=== PATIENT | female | born 1945 | race Asian ===

== ENCOUNTER 2018-04-07 14:27 | Emergency (ER) | payer OTHER ==
[2018-04-07 14:48] VITALS: BP 119/73; PULSE 88; TEMP 98.2; BMI 23.0
--- NOTE | 2018-04-07 15:42 | PDOC ---
History of Present Illness - General Chief Complaint: Lightheaded Stated Complaint: Lightheaded Time Seen by Provider: 04/07/18 15:29 - History of Present Illness Initial Comments: 04/07/18 15:36 72 F with h/o CAD/stent, DM, HTN, AICD, presenting to ED with lightheadedness. Pt states that she was having a mammogram done when she felt very dizzy. Denies room-spinning sensation. States that she felt lightheaded like she was about to faint, but she denies LOC. Pt states that the episode lasted less than 1 minute before resolving completely. Pt denies ever having CP/SOB/palpitations. Denies any recent F/C. Denies abdominal pain/N/V/D. Denies any symptoms at this time. She states that she has had many similar episodes in the past. Pt was brought to ED as a rapid response. Past History - Past Medical History Allergies/Adverse Reactions: Allergies Allergy/AdvReac Type Severity Reaction Status Date / Time No Known Allergies Allergy Verified 04/07/18 14:43 Home Medications: Ambulatory Orders Aspirin [ASA -] 81 mg PO DAILY 05/27/14 Carvedilol [Coreg] 3.125 mg PO BID 05/27/14 Clopidogrel Bisulfate [Plavix -] 75 mg PO DAILY 05/27/14 Isosorbide Mononitrate [Imdur -] 30 mg PO BID 05/27/14 Ranolazine [Ranexa] 1,000 mg PO BID 05/27/14 Cilostazol 50 mg PO BID 01/23/15 Pantoprazole Sodium [Protonix] 40 mg PO DAILY 01/23/15 Rosuvastatin Calcium [Crestor] 10 mg PO DAILY 01/23/15 Cardiac Disorders: Yes (LBBB Stent LAD RCA) COPD: No GI Disorders: Yes (GERD) HTN: Yes Liver Disease: Yes (ELEVATED ENZYMES) - Surgical History Cardiac Surgery: Yes (STENT X3) - Suicide/Smoking/Psychosocial Hx Smoking Status: No Smoking History: Former smoker Have you smoked in the past 12 months: No Number of Cigarettes Smoked Daily: 0 Information on smoking cessation initiated: No Hx Alcohol Use: No Drug/Substance Use Hx: No Review of Systems - Review of Systems Comments:: 04/07/18 15:38 "GENERAL/CONSTITUTIONAL: No fever or chills. No weakness. HEAD, EYES, EARS, NOSE AND THROAT: No change in vision. No ear pain or discharge. No sore throat. CARDIOVASCULAR: + lightheadedness, No chest pain, no shortness of breath, no loss of consciousness RESPIRATORY: No cough, wheezing, or hemoptysis. GASTROINTESTINAL: No nausea, vomiting, diarrhea or constipation. GENITOURINARY: No dysuria, frequency, or change in urination. MUSCULOSKELETAL: No joint or muscle swelling or pain. No neck or back pain. SKIN: No rash NEUROLOGIC: No vertigo, no change in strength/sensation. ENDOCRINE: No increased thirst. No abnormal weight change. HEMATOLOGIC/LYMPHATIC: No anemia, easy bleeding, or history of blood clots. ALLERGIC/IMMUNOLOGIC: No hives or skin allergy. *Physical Exam - Vital Signs Last Vital Signs Temp Pulse Resp BP Pulse Ox 98.2 F 88 18 119/73 96 04/07/18 14:43 04/07/18 14:43 04/07/18 14:43 04/07/18 14:43 04/07/18 14:43 - Physical Exam Comments: 04/07/18 15:38 GENERAL: Awake, alert, and fully oriented, in no acute distress. HEAD: No signs of trauma EYES: PERRLA, EOMI, sclera anicteric, conjunctiva clear ENT: Auricles normal inspection, hearing grossly normal, nares patent, oropharynx clear without exudates. Moist mucosa NECK: Nontender, no stepoffs, Normal ROM, supple, no lymphadenopathy, JVD, or masses LUNGS: Breath sounds equal, clear to auscultation bilaterally. No wheezes, and no crackles HEART: Regular rate and rhythm, normal S1 and S2, no murmurs, rubs or gallops ABDOMEN: Soft, nontender, normoactive bowel sounds. No guarding, no rebound. No masses EXTREMITIES: Normal range of motion, no edema. No clubbing or cyanosis. No cords, erythema, or tenderness NEUROLOGICAL: Cranial nerves II through XII intact. 5/5 strength and sensation in all extremities, Normal speech, normal gait, normal cerebellar function SKIN: Warm, Dry, normal turgor, no rashes or lesions noted. Moderate Sedation - Procedure Monitoring Vital Signs: Procedure Monitoring Vital Signs Temperature 98.2 F 04/07/18 14:43 Pulse Rate 88 04/07/18 14:43 Respiratory Rate 18 04/07/18 14:43 Blood Pressure 119/73 04/07/18 14:43 O2 Sat by Pulse Oximetry (%) 96 04/07/18 14:43 Medical Decision Making - Medical Decision Making 04/07/18 15:38 72 F with presyncopal episode while getting mammogram. Now asymptomatic with stable vitals. Will need to r/o ACS vs arrhythmia. Also consider metabolic derangement or infectious process. - Labs, trop - EKG - UA, CXR - IVF Pt is at this time refusing all testing and any further evaluation, stating that she feels well. Pt states that she has had similar episodes in the past. She states that if she feels unwell at home, she will come back. The patient is clinically sober, free from distracting injury, appears to have intact insight and judgment and reason and in my opinion has the capacity to make decisions. The patient presented with lightheadedness. I have explained that I am concerned that this may represent arrhythmia or heart attack; they have verbalized an understanding of my concerns. I have discussed the need for EKG, blood tests, and possible admission to the hospital to get more information about potential causes of the patients lightheadedness. I have told the patient that if they leave and have chest pain or shortness of breath, they could get much worse, could become critically ill, and could possibly become disabled or . I have discussed these concerns with the patients who is at the bedside and he is unable to convince them to stay for further evaluation. The patient is not willing to await any testing. She is refusing any further care and is leaving against medical advice. I am unable to convince the patient to stay, I have asked them to return as soon as possible to complete their evaluation. I have answered all their questions. *DC/Admit/Observation/Transfer Diagnosis at time of Disposition: Dizziness - Discharge Dispostion Disposition: AGAINST MEDICAL ADVICE - Referrals Referrals: Vanessa Chambers [Primary Care Provider] - - Patient Instructions - Post Discharge Activity - Attestations Physician Attestion: 04/07/18 15:45 I, Dr. Nba Joshi MD, attest that this document has been prepared under my direction and personally reviewed by me in its entirety. I further attest, that it accurately reflects all work, treatment, procedures and medical decision -making performed by me.
== END 2018-04-07 16:00 | disposition left against medical advice (07) ==
LOC: JER 14:27
DX: R42 Dizziness and giddiness (principal); I25.10 Atherosclerotic heart disease of native coronary artery without angina pectoris; I10 Essential (primary) hypertension; Z95.5 Presence of coronary angioplasty implant and graft; Z95.810 Presence of automatic (implantable) cardiac defibrillator; E11.9 Type 2 diabetes mellitus without complications; K21.9 Gastro-esophageal reflux disease without esophagitis
CPT/HCPCS: 99281-25

== ENCOUNTER 2020-10-10 11:14 | Emergency (ER) | payer MEDICARE, OTHER ==
[2020-10-10 11:23] VITALS: BP 136/98; PULSE 83; TEMP 98.8; BMI 23.4
[2020-10-10] MEDS ORDERED: predniSONE 20 MG TABLET (UD) PO ONE (12:19)
[2020-10-10] MEDS ORDERED: ACETAMINOPHEN 500 MG TABLET (FP) PO ONE (12:19)
[2020-10-10] MEDS ORDERED: ACETAMINOPHEN 500 MG TABLET (FP) ONE (12:20)
[2020-10-10] MEDS ORDERED: predniSONE 20 MG TABLET (UD) ONE (12:20)
== END 2020-10-10 12:25 | disposition home or self-care (01) ==
LOC: JERFT 11:14
DX: M79.641 Pain in right hand (principal)
CPT/HCPCS: 73130-TC-RT-FY; 99283-25

== ENCOUNTER 2021-05-29 07:54 | Emergency (ER) | payer MEDICARE, OTHER ==
[2021-05-29 08:05] VITALS: BP 150/81; PULSE 71; TEMP 97.8; BMI 25.7
[2021-05-29] MEDS ORDERED: CEFAZOLIN 1 GM in DEXTROSE 5%-WATER - 50 ML IVPB ONE (08:42)
[2021-05-29] MEDS ORDERED: ACETAMINOPHEN 1000 MG/100 ML BAG IVPB ONE (08:42)
[2021-05-29 09:18] LABS: BASO % 0.7 % (0-2.0); EOS % 0.4 % (0-4.5); HEMOGLOBIN 12.5 GM/dL (10.7-15.3); MCH 31.7 pg (25.7-33.7); MCHC 33.7 g/dl (32.0-36.0); MEAN PLT VOLUME 7.8 fl (7.5-11.1); MONO % 6.6 % (3.8-10.2); NEUT % 76.3 % (42.8-82.8); PLATELET COUNT 220 10^3/uL (134-434); RBC 3.94 M/mm3 (3.60-5.2); WHITE BLOOD COUNT 11.2 K/mm3 (4.0-10.0)
[2021-05-29 09:40] LABS: BLOOD UREA NITROGEN 9.1 mg/dL (7-18); CALCIUM 9.5 mg/dL (8.5-10.1)
[2021-05-29 09:41] LABS: ALBUMIN 3.7 g/dl (3.4-5.0)
[2021-05-29] MEDS ORDERED: ceFAZolin SODIUM 1 GM VIAL ONE (09:42)
[2021-05-29] MEDS ORDERED: ACETAMINOPHEN INJECTION 100 ML IVPB ONE (09:42)
[2021-05-29 09:44] LABS: CREATININE 1.1 mg/dL (0.55-1.3)
[2021-05-29 09:45] LABS: BILIRUBIN,TOTAL 0.7 mg/dL (0.2-1); TOT PROT 7.6 g/dl (6.4-8.2)
== END 2021-05-29 11:33 | disposition home or self-care (01) ==
LOC: JER 07:54
PROC: 3E0333Z Introduction of Anti-inflammatory into Peripheral Vein, Percutaneous Approach (ICD-10-PCS; principal; 2021-05-29)
PROC: 3E03329 Introduction of Other Anti-infective into Peripheral Vein, Percutaneous Approach (ICD-10-PCS; 2021-05-29)
DX: L03.113 Cellulitis of right upper limb (principal)
CPT/HCPCS: 36415; 73110-TC-RT-FY; 73130-TC-RT-FY; 80053; 85025; 99285-25

== ENCOUNTER 2024-12-24 05:40 | Day surgery (SDC) | payer OTHER ==
[2024-12-20 12:18] VITALS: BMI 24.7
[2024-12-24 09:15] VITALS: TEMP 98
[2024-12-24 09:39] VITALS: BP 149/62; PULSE 63; RESP 16
== END 2024-12-24 09:48 | disposition home or self-care (01) ==
LOC: JASU-ENDO 05:40
PROVIDERS: ATTEND Student in an Organized Health Care Education/Training Program
PROC: 0DB38ZX Excision of Lower Esophagus, Via Natural or Artificial Opening Endoscopic, Diagnostic (ICD-10-PCS; 2024-12-24)
PROC: 0DB78ZX Excision of Stomach, Pylorus, Via Natural or Artificial Opening Endoscopic, Diagnostic (ICD-10-PCS; 2024-12-24)
PROC: 0DB68ZX Excision of Stomach, Via Natural or Artificial Opening Endoscopic, Diagnostic (ICD-10-PCS; 2024-12-24)
PROC: 0DBM8ZX Excision of Descending Colon, Via Natural or Artificial Opening Endoscopic, Diagnostic (ICD-10-PCS; principal; 2024-12-24 08:45)
DX: Z12.11 Encounter for screening for malignant neoplasm of colon (principal); D12.4 Benign neoplasm of descending colon; K64.8 Other hemorrhoids; K29.50 Unspecified chronic gastritis without bleeding; K44.9 Diaphragmatic hernia without obstruction or gangrene; K21.00 Gastro-esophageal reflux disease with esophagitis, without bleeding
CPT/HCPCS: 88305-TC; 88342-TC